=== PATIENT | male | born 1965 | race African-American/Black ===

== ENCOUNTER 2020-11-03 15:35 | Emergency (ER) | payer OTHER ==
[~2020-11-03] VITALS: Ht 180.3 cm; Wt 90.7 kg
[2020-11-03 15:49] VITALS: BP 124/61
[2020-11-03] MEDS ORDERED: OMEPRAZOLE 20 M20 M1 PO (15:54)
[2020-11-03] MEDS ORDERED: HYDROCHLOROTHIA25 M2 PO (15:54)
[2020-11-03] MEDS ORDERED: LISINOPRIL10 MG PO (15:54)
[2020-11-03] MEDS ORDERED: LIPITOR10 MG PO (15:54)
[2020-11-03] MEDS ORDERED: ADCIRCA20 MG PO (15:58)
[2020-11-03] MEDS ORDERED: TESTOSTERO200 MG/1 M IM (15:59)
[2020-11-03] MEDS ORDERED: ZYRTEC 10 MG TA10 MG PO (16:00)
[2020-11-03] MEDS ORDERED: POTASSIUM20 PO (16:01)
[2020-11-03] MEDS ORDERED: NIACIN 500 MG500 M1 PO (16:02)
[2020-11-03] MEDS ORDERED: MELATONIN5 MG SUBLING (16:02)
[2020-11-03] MEDS ORDERED: PROAIR HFA8.5 GM INH (16:03)
[2020-11-03] MEDS ORDERED: BUSPIRONE HCL10 MG PO (16:04)
[2020-11-03] MEDS ORDERED: FLONASE 0.05%50 MCG NARES (16:04)
[2020-11-03] MEDS ORDERED: TERAZOSIN HCL5 MG PO (16:05)
[2020-11-03] MEDS ORDERED: TRAZODONE HCL100 MG PO (16:06)
[2020-11-03] MEDS ORDERED: BACLOFEN 10MG T10 MG PO (16:06)
[2020-11-03] MEDS ORDERED: ERYTHROMYCIN E3.5 G3 OPHTHALMIC (16:41)
== END 2020-11-03 16:45 | disposition home or self-care (01) ==
LOC: ER 15:35
DX: H10.32 Unspecified acute conjunctivitis, left eye (principal); I10 Essential (primary) hypertension; Z79.899 Other long term (current) drug therapy; Z88.0 Allergy status to penicillin; Z87.891 Personal history of nicotine dependence

== ENCOUNTER 2021-11-04 14:59 | Emergency (ER) | payer OTHER ==
[~2021-11-04] VITALS: Ht 180.3 cm; Wt 86.2 kg
[~2021-11-04 14:59] MED LIST: ADCIRCA20 MG PO; BACLOFEN 10MG T10 MG PO; BUSPIRONE HCL10 MG PO; ERYTHROMYCIN E3.5 G3 OPHTHALMIC; FLONASE 0.05%50 MCG NARES; HYDROCHLOROTHIA25 M2 PO; LIPITOR10 MG PO; LISINOPRIL10 MG PO; MELATONIN5 MG SUBLING; NIACIN 500 MG500 M1 PO; OMEPRAZOLE 20 M20 M1 PO; POTASSIUM20 PO; PROAIR HFA8.5 GM INH; TERAZOSIN HCL5 MG PO; TESTOSTERO200 MG/1 M IM; TRAZODONE HCL100 MG PO; ZYRTEC 10 MG TA10 MG PO
[2021-11-04 16:00] LABS: HEMATOCRIT 47.1 % (42.0-52.0); HEMOGLOBIN 16.1 gm/dL (14.0-18.0); MCH 32.9 pg (26.0-34.0); MCHC 34.1 g/dL (28.0-37.0); MCV 96.5 fL (80.0-100.0); PLATELET COUNT 191 thou/uL (150-400); RBC 4.88 mil/uL (4.50-6.00); RDW 13.9 % (10.5-14.5); WBC 4.3 thou/uL (4.0-11.0)
[2021-11-04 16:25] LABS: CALCIUM 8.3 mg/dL (8.5-10.1); CREATININE 6.9 mg/dL (0.7-1.3); POTASSIUM 3.7 mmol/L (3.5-5.1)
[2021-11-04 16:36] LABS: ALBUMIN 1.4 g/dL (3.4-5.0); TOTAL BILIRUBIN 0.4 mg/dL (0.2-1.0); TOTAL PROTEIN 5.5 g/dL (6.4-8.2)
[2021-11-04 17:07] LABS: ABSOLUTE NEUTROPHILS 2.6 thou/uL (1.4-8.2); PLATELET ESTIMATE NORMAL
[2021-11-04] MEDS ORDERED: ZPAK PO (17:43)
[2021-11-04 18:36] VITALS: BP 141/69
--- NOTE | 2021-11-05 10:23 | EKG ---
[place] [address] [facility] [place] [address] ELECTROCARDIOGRAM REPORT Name: RHONAMILADYS Room #: DEP Mandi#: [id number] Admission: 11/04/21 Attend Phys: Discharge: 11/04/21 Date of : 65 Report #: [id number] [facility] ED Test Date: 2021-11-04 Test Time: 15:41:08 Pat Name: MILADYS MELGOZA Department: Room: Gender: Radiology Transcriptionist: : 1965 Requested By: Janae Fuchs Order Number: [id number] MD: Sorin Haynes Measurements Intervals [place] Rate: 85 P: 61 VT: 148 QRS: 24 QRSD: 93 T: -16 QT: 373 QTc: 444 Interpretive Statements Sinus rhythm Probable left atrial enlargement Borderline T abnormalities, inferior leads No previous ECG available for comparison Electronically Signed On 11-05-2021 10:23:20 [employer]OT[employer]OL MANAGER by Sorin Haynes [email or web address] <ELECTRONICALLY SIGNED> By: Sorin Haynes MD, [facility] 11/05/21 1023 1541 1541 Sorin Haynes MD, FACC /EPI
== END 2021-11-04 18:36 | disposition home or self-care (01) ==
LOC: ER 14:59
PROVIDERS: Emergency Medicine
DX: U07.1 COVID-19 (principal); J12.82 Pneumonia due to coronavirus disease 2019; I10 Essential (primary) hypertension; Z79.899 Other long term (current) drug therapy; Z79.891 Long term (current) use of opiate analgesic; Z79.1 Long term (current) use of non-steroidal anti-inflammatories (NSAID); Z88.0 Allergy status to penicillin; Z87.891 Personal history of nicotine dependence; Z20.822 Contact with and (suspected) exposure to COVID-19